=== PATIENT | male | born 1970 | race Two or more races ===

== ENCOUNTER 2018-03-22 10:39 | Outpatient (CLI) | payer OTHER | END 2018-03-22 10:56 | disposition home or self-care (01) | LOC: RAD 10:39 | DX: M25.522 Pain in left elbow (principal); Z77.090 Contact with and (suspected) exposure to asbestos; M51.27 Other intervertebral disc displacement, lumbosacral region ==

== ENCOUNTER 2018-03-26 11:25 | Outpatient (CLI) | payer OTHER | END 2018-03-26 11:27 | disposition home or self-care (01) | LOC: SONOGRAMA 11:25 | DX: M25.561 Pain in right knee (principal) ==